=== PATIENT | male | born 1950 | race Caucasian/White ===

== ENCOUNTER 2019-01-18 10:32 | Inpatient (IN) | payer MEDICARE, SELFPAY ==
[2019-01-04 08:52] VITALS: BMI 40.8
[2019-01-17 07:54] VITALS: BMI 40.8
[2019-01-18] VITALS (18 sets, daily range): BP systolic 93–149; BP diastolic 46–88; PULSE 53–88; RESP 13–26; TEMP 35.6–36.6; O2SAT 89–100; BMI 40.6
--- NOTE | 2019-01-18 07:41 | DI.RAD.S_ITS ---
PROCEDURE: XR KNEE LT 1TO2V INDICATIONS: TKA TECHNIQUE: 2 view(s) of the knee acquired. COMPARISON: [facility], , KNEE 1-2 VIEWS RIGHT, 01/02/2015, 11:29. FINDINGS: Bones: Patient is status post knee joint arthroplasty. Hardware components are in expected positions. Visualized bony structures are intact. Soft tissues: Overlying postoperative changes are noted. IMPRESSION: Status post left total knee arthroplasty in normal postoperative alignment. No acute hardware complication. Dictated by: Siddhartha Bruce M.D. on 01/18/2019 at 18:00 Approved by: Siddhartha Bruce M.D. on 01/18/2019 at 18:01
[2019-01-18] MEDS: LACTATED RINGERS 1,000 ML 42 ML IV ×2 (11:33→15:25)
[2019-01-18] MEDS: CELECOXIB 200 MG CAPSULE PO (11:34)
[2019-01-18] MEDS: ACETAMINOPHEN 325 MG TABLET 975 MG PO ×3 (11:34→20:28)
[2019-01-18] MEDS: PREGABALIN 75 MG CAPSULE PO (11:34)
--- NOTE | 2019-01-18 12:09 | P.OP_ITS ---
Operative Date/Time/Diagnoses Date of procedure: 01/18/19 Time of procedure: 15:00 Pre-op diagnosis: Left knee osteoarthritis Post-op diagnosis: same Procedure & Clinicians Procedure: Left total knee arthroplasty Same procedure as scheduled: Yes Indications: The patient presents today for total knee arthroplasty after failure of conservative treatment. The nature of the procedure including the risks and benefits, alternatives, postoperative course and expected outcome were discussed and all questions answered. Consent was obtained. Operative site confirmed and marked. Surgeon: Dejan Estrada Refining Equipment Operator: Laz Herr Anesthesia Type: General and Spinal Operative Notes Findings: Severe osteoarthritis with varus alignment. Closure Type: primary Specimen(s): none sent Prosthetic devices, grafts, tissues, transplants, or devices: Srinivasan Persona TKA 8 CR femoral component, G stemmed tibial component, 10MC polyethylene tray and 35 mm all poly patella. Applied: implant(s) Estimated Blood Loss (mL): 15 Blood products transfused: none Tourniquet time (min): 69 Procedure in detail: The patient was taken to the operative suite and placed under general and spinal anesthesia. The patient was given prophylactic antibiotics prior to surgery. The patient was also given tranexamic acid, 1 g, just prior to surgery for postoperative hemostasis. The lateral knee was prepped and the joint injected with 20 mL of 1% Lidocaine with epinephrine. The knee was then prepped and draped in usual sterile fashion. The leg was exsanguinated with an Esmarch dressing and the tourniquet raised to 300 torr. A 15 cm anterior incision was made. Next a medial trivector arthrotomy was made. The extensor mechanism was marked to ensure accurate repair. Initial exposing dissection was carried out medially and laterally. The knee was then extended and the patellar thickness was measured and a cut made removing approximately 9 mm of bone. The patella was then sized and drilled. Some excess lateral bone was excised and the patellofemoral ligament released. The knee was then flexed and the intramedullary femoral guide dayo placed. The distal femoral cut was made in 5 ? of valgus at the + 0 position. The femoral size was measured and the appropriate cutting block was then placed and the anterior, posterior and chamfer cuts made. The intramedullary tibial alignment dayo was then placed. The guide was set to remove approximately 11 mm from the less affected lateral side which was about 2 mm through the medial side. The proximal tibial cut was then made with an oscillating saw. All meniscus and bony debris was then removed. Posterior femoral osteophytes removed with a curved osteotome. Flexion extension gaps were checked. No specific balancing was required other than routine exposure and removal of osteophytes. The soft tissues were then injected with a combination of 20 mL of half percent Marcaine with epinephrine and 20 mL of Exparel. The trial components were then placed. The knee went into full extension and flexion beyond 120?. There was good medial-lateral balance throughout motion. The knee was just slightly tighter in flexion than extension. Patellar tracking was excellent. The trial components were removed and the knee was cleansed with Pulsavac irrigation and dried. The final components were cemented with high viscosity vacuum mixed bone cement with antibiotics. The joint was filled with a dilute Betadine solution. The knee was held in extension and the patellar clamped until the cement was fully cured. The knee was then irrigated. The extensor mechanism was closed with 5 interrupted #1 Vicryl sutures and a running Quill suture at 90 degrees of flexion. The joint was then injected with a combination of 1 g of tranexamic acid and 20 mL of quarter percent Marcaine with epinephrine. The subcutaneous tissue was closed with 2 0 Vicryl. The skin was closed with sriram and surgical adhesive. An Aquacel dressing and Cristobal wrap were then applied. The patient tolerated the procedure well and was returned to recovery room in good condition. Complications: none Post-operative Condition: stable Disposition: PACU Plan for aftercare: [facility] protocol for total knee arthroplasty.
--- NOTE | 2019-01-18 12:09 | PM.PREOP ---
Pre-operative Note Interval Note History & Physical reviewed/Exam performed by Physician: Yes Changes to H&P: No
[2019-01-18] MEDS: CEFAZOLIN 2 GM/100 ML FROZ.PIGGY IV (13:25)
[2019-01-18] MEDS: LIDOCAINE 1% W/EPI 20 ML INJ (13:45)
--- NOTE | 2019-01-18 14:09 | SUR.OPER ---
Supine on padded OR bed. Pillow under head, arms secured on padded armboards <90 degree abduction. Safety belt across torso. Non-operative leg secured with tape over blanket over lower leg. Operative leg secured in DeMayo/Arian positioner. Foam padded brace at thigh of operative leg.
[2019-01-18] MEDS: BUPIVACAINE 0.25% W/ EPI (PF) 20 ML, TRANEXAMIC ACID 1,000 MG, SODIUM CHLORIDE 0.9% 10 ML INJ (14:18)
[2019-01-18] MEDS: BUPIVACAINE 0.25% W/ EPI (PF) 40 ML, BUPIVACAINE LIPOSOME 266 MG, SODIUM CHLORIDE 0.9% ... INJ (14:19)
[2019-01-18] MEDS: SODIUM CHLORIDE IRRIG SOLUTION 250 ML, POVIDONE-IODINE SPONGE STICKS 1 APPLIC IRR (14:20)
[2019-01-18] MEDS: LACTATED RINGERS 1,000 ML 125 ML IV (17:58)
--- NOTE | 2019-01-18 19:42 | PC.ADMIT ---
[facility] Admission Note: The patient,Rhett Rico,68 y/o, was given written information regarding hospital policies, unit procedures and contact persons. Patient's smoking status: Former smoker. Pt arrived from PACU at approx 1725. A/O. Drsg with gino drsg and radha wrap c/d/i. Denies pain. Reports mild tingling L. Foot. Reports baseline neuropathy. SCD's on. CPOX on, 4L NC upon arrival. Tritrated down to 3L NC sats 95%. Oriented to room and call system. Carb control diet ordered. Bed alarm on. Pt verbalized he will call for needs. Vital Signs - 8 hr 01/18/19 15:32 01/18/19 15:37 01/18/19 15:42 Temperature 97.9 F Pulse Rate 59 L 58 L 55 L Respiratory Rate 24 14 20 Blood Pressure 124/63 127/61 107/46 L Pulse Oximetry 96 98 98 01/18/19 15:45 01/18/19 15:47 01/18/19 15:52 Temperature Pulse Rate 57 L 55 L 59 L Respiratory Rate 17 24 26 H Blood Pressure 110/49 L 93/57 L Pulse Oximetry 95 97 01/18/19 16:00 01/18/19 16:08 01/18/19 16:29 Temperature 97.7 F 97.6 F Pulse Rate 56 L 56 L 53 L Respiratory Rate 19 13 22 Blood Pressure 142/64 H 128/68 129/75 Pulse Oximetry 100 95 96 01/18/19 17:27 01/18/19 17:40 01/18/19 18:10 Temperature 97 F L 97 F L Pulse Rate 53 L 53 L 55 L Respiratory Rate 20 18 Blood Pressure 139/77 127/63 Pulse Oximetry 96 94 95 01/18/19 18:40 01/18/19 18:53 Temperature 97 F L 96.6 F L Pulse Rate 56 L 88 Respiratory Rate 18 16 Blood Pressure 131/77 138/75 Pulse Oximetry 100 93
[2019-01-18] MEDS: ASPIRIN EC 81 MG TABLET PO (20:28)
[2019-01-18] MEDS: ZOLPIDEM 5 MG TABLET PO (20:29)
[2019-01-18] MEDS: OXYCODONE IR 10 MG TABLET PO (20:29)
[2019-01-18] MEDS: CEFAZOLIN VIAL 3 GM in SODIUM CHLORIDE 0.9% 100 ML 200 ML IV (20:34)
[2019-01-18] MEDS: HYDROMORPHONE 0.5 MG INJ IV ×2 (21:14→22:31)
--- NOTE | 2019-01-18 23:27 | PC.NURSE ---
Medicated per may for 01/05 pain. Pt states Oxycodone is not effective and he states he does not want it anymore. He states he has notified Dr. Estrada's office prior to surgery of his medication requests. He states I am angry that they ordered this medication when I told them it doesn't work. IV Dilaudid effective since administration. Presently sleeping with c-pap on 4L O2 bleed in.
[2019-01-19] VITALS (10 sets, daily range): BP systolic 126–140; BP diastolic 64–84; PULSE 73–82; RESP 16–20; TEMP 36.1–37; O2SAT 88–99
[2019-01-19] MEDS: LACTATED RINGERS 1,000 ML 125 ML IV (02:06)
[2019-01-19] MEDS: CEFAZOLIN VIAL 3 GM in SODIUM CHLORIDE 0.9% 100 ML 200 ML IV (05:31)
[2019-01-19] MEDS: HYDROMORPHONE 0.5 MG INJ IV ×3 (05:50→17:27)
--- NOTE | 2019-01-19 06:05 | PC.NURSE ---
Pt alert and oriented. Sleeping with CPAP and 4L O2 during the night, weaned off to 2L o2 NC in AM. O2 stats 93%. Will continue to wean O2 as tolerates. Pt had no complaints of pain during the night. Woke up around 5:30 reporting his pain a 10/10. Pt reports oxycodone and tylenol do not work for me, I need something else. Pain resolved with giving IV dilaudid. Left knee post op site picco dressing wrapped in radha clean dry and intact. Ice applied. Pedal pulses intact bilateral feet. Pt voiding without difficulty. No complaints. WCTM
[2019-01-19] MEDS: OXYCODONE IR 10 MG TABLET PO (06:17)
[2019-01-19 06:44] LABS: Hematocrit 42.3 % (41-53); Hemoglobin 14.1 g/dL (13.5-17.5)
--- NOTE | 2019-01-19 08:16 | PM.PNPO.1 ---
Subjective Subjective Date Patient Seen: 01/19/19 Time Patient Seen: 08:00 Interval history: Post op day 1, s/p total left knee arthroplasty with Dr. Estrada. Overnight patient had poorly controlled pain in L knee (oxy 10 and tylenol). Pain relief with IV dilaudid 0.5 mg. 02 88 on room air. Hx of sleep apnea and chronic short of breath. Patient is voiding without difficulty or assistance. Not ambulating. Patient has no complaints. He states he had numbness in the bottom of his feet and swelling in his left leg before surgery. Denies fever, chills, nausea, vomiting, chest pain, calf pain. Exam Vital Signs (past 8 hours): - 01/19/19 00:45 01/19/19 06:30 01/19/19 07:35 Temperature 96.9 F L 97.5 F L Pulse Rate 80 Respiratory Rate 17 Blood Pressure 140/84 Pulse Oximetry 94 92 95 01/19/19 07:40 01/19/19 07:42 01/19/19 08:00 Temperature 97.7 F Pulse Rate 82 Respiratory Rate 20 Blood Pressure 126/64 Pulse Oximetry 88 L 91 88 L Oxygen Delivery Method Room Air Oxygen Flow Rate 0 Narrative Exam Narrative: 68 year old male, is laying comfortably in bed, in no apparent distress. A&Ox3. JOSE M dressing is CDI. Pitting edema +1 in L LE. Patient able to actively dorsiflex/plantar flex. Sensory function grossly intact to light touch in LE, except plantar aspect of feet L>R. Dorsalis pedis 2+. Capillary refill <2seconds. Calves warm, soft, compressible, nttp. Objective Labs Result Diagrams: 01/19/19 06:16 Labs: Laboratory Results - last 24 hr 01/19/19 06:16 Hgb 14.1 Hct 42.3 Assessment & Plan Post-op Postoperative Procedures: Procedures Operation Date: 01/18/19 13:00 Actual Procedures Side Surgeon p Total Knee Arthroplasty Left Dejan Estrada MD Postoperative status: doing well and marginal pain control Postoperative plan narrative: Pain management - dilaudid 2mg PO for moderate pain, diluadid 4mg PO for severe pain, ibuprofen and tylenol Begin ambulating with physical therapy O2 - continue to monitor Discharge likely in 24 hours pending physical therapy, o2, and pain control. Will likely prescribe dilaudid 2mg for home. Time Spent With Patient Time with patient: less than 15 minutes Quality VTE Deep Vein Thrombosis/Pulmonary Embolism Present on Admission: No
[2019-01-19] MEDS: METFORMIN HCL 500 MG TABLET PO (08:53)
[2019-01-19] MEDS: ASPIRIN EC 81 MG TABLET PO ×2 (08:54→19:40)
[2019-01-19] MEDS: ATORVASTATIN 20 MG TABLET 40 MG PO (08:54)
[2019-01-19] MEDS: LOSARTAN 50 MG TABLET 100 MG PO (08:55)
[2019-01-19] MEDS: CHLORTHALIDONE 25 MG TABLET PO (08:55)
[2019-01-19] MEDS: HYDROMORPHONE 4 MG TABLET PO ×2 (08:56→12:21)
[2019-01-19] MEDS: METOPROLOL IR 25 MG TABLET PO (08:56)
[2019-01-19] MEDS: SODIUM CHLORIDE 0.9% FLUSH 10 ML IV ×2 (09:02→17:27)
[2019-01-19] MEDS: IBUPROFEN 400 MG TABLET PO (10:16)
--- NOTE | 2019-01-19 11:24 | PT.IIE ---
Current Diagnoses Unilateral primary osteoarthritis, left knee (01/18/19) Presence of right artificial knee joint (01/18/19) Surgery Performed Operation Date: 01/18/19 13:00 Actual Procedures p Total Knee Arthroplasty(Left) - Dejan Estrada MD Surgical History (Last Updated 01/04/19 @ 09:24 by Flavia Coreas RN) History of arthroplasty of right knee (Acute ~2017) Hx of tonsillectomy (Acute) Medical History (Last Updated 01/04/19 @ 09:25 by Flavia Coreas RN) Back pain (Acute) Chronic shortness of breath (Acute) Depression (Acute) Diabetes (Acute) Diabetic neuropathy (Acute) Diastolic dysfunction (Acute) Edema (Acute) HLD (hyperlipidemia) (Acute) HTN (hypertension) (Acute) Osteoarthritis (Acute) Pneumonia (Acute) Psoriasis (Acute) Sleep apnea (Acute) Physical Therapy Inpatient Evaluation/Re-Eval M1 PT/OT-IP Prior Functional Status Start: 01/19/19 08:36 Freq: NEEDED Status: Active Protocol: Document 01/19/19 10:50 AW (Rec: 01/19/19 11:24 AW [id number]) Medical Review Prior Functional Status Medical History Reviewed Yes Diet/Fluid Consistency Regular Communication Able to make needs known. No known deficits Mobility and Gait Pt was modified independent with mobility using a SPC at all times. For bed mobility, he has a trapeze he installed himself which he uses to pull up from supine. He could manage stairs but required extra time. He does report one fall within the past year. He says he slid out of bed onto the floor and damaged a toenail. He denies any other injuries. Activities of Daily Living and IADL's Independent with the exception of requiring help to don shoes and socks. Social History Household Members significant other Living Arrangements House Number of Floors (Floors) Two Floors Number of Stairs To Enter/Railing? 0 JOHNATHON. ~30 stairs to basement, but pt does not need to access the basement. Home Environment Standard Height Toilet,Walk in Shower Home Equipment Front Wheel Walker,Straight Cane,Raised Toilet Seat w/ Armrests,Shower Seat without Backrest,Grab Bars In Shower Employment Status Retired Additional Social History Comment Pt lives with his girlfriend who is retired. She is available and able to assist as needed. M2 PT-IP Current Condition Start: 01/19/19 08:36 Freq: NEEDED Status: Active Protocol: Document 01/19/19 10:50 AW (Rec: 01/19/19 11:24 AW [id number]) Physical Therapy Current Condition Current Condition Evaluation Date 01/19/19 Treatment Diagnosis s/p L TKA, impaired mobility Weight Bearing Status Weight Bearing Status Weight Bear as Tolerated M3 PT-IP Subjective Start: 01/19/19 08:36 Freq: NEEDED Status: Active Protocol: Document 01/19/19 10:50 AW (Rec: 01/19/19 11:24 AW [id number]) Subjective Physical Therapy Visit Type Type Initial Evaluation Visit Start Time 09:00 Visit Stop Time 10:00 Total Visit Minutes 60 Number of COMMERCIAL SINGER Visits 0 Physical Therapy Visit Comments Patient Comments Pt is in a lot of pain but willing to work with therapy Patient Goals Pt hopes to discharge to home with the assistance of his girlfriend. Therapy Pain Assessment Pain When Pain Assessed During Mobility Pain Present Pain Present Pain Reported Location Knee Intensity 10 Scale Used 5/10 at rest; 10/10 with mobility Pain Management Techniques Apply Cold,Elevation,Re- positioning,Timing of Activity with Medications M4 PT-IP Mobility and Gait Start: 01/19/19 08:36 Freq: NEEDED Status: Active Protocol: Document 01/19/19 10:50 AW (Rec: 01/19/19 11:24 AW [id number]) PT-Bed Mobility Assessment Supine to Sit Supine to Sit Minimal Assistance,Moderate Assistance,1 Person Assistance ,Head of Bed Elevated,Bedrails Sit to Supine Sit to Supine Minimal Assistance,1 Person Assistance Scooting Scooting to Edge of Bed Contact Guard Assistance Scooting Up and Down in Bed Standby Assistance PT-Transfer Assessment Sit to and From Stand Sit to and from Stand Minimal Assistance,Moderate Assistance,1 Person Assistance ,Use of Upper Extremities Equipment Transfer Assistive Device Bed Rail,Gait Belt,Front Wheeled Walker Transfers Transfer Destination Bed,Bedside Commode Transfer Technique pt ambulated using FWW to bed; stand step pivot to BSC Transfer Ability Level of Assist Minimal Assistance Comments Mobility Comments Pt normally uses a trapeze for bed mobility at home. In this setting, he required heavy use of bed rails with HOB elevated 75 degrees and min to mod assist to complete supine to sit. He was able to scoot toward EOB with CGA. Sit <> stand required max cues for hand placement and mod assist to achieve standing position. Subsequent attempts required min assist. Transfer to [facility] required frequent cues for sequencing and proper use of UE's. Gait Assessment Gait Gait Assistance Required: Minimum Assistance Distance (Feet) 12 Able to Maintain Weight Bearing Status Yes During Gait Assistive Devices Assistive Device Gait Belt,Front Wheeled Walker Orthotic/Prosthetic Devices or Brace: No Gait Deviations General Gait Pattern Antalgic,Decreased Stride Length,Decreased Feet Clearance,Flexed Trunk,Step-to Gait Factors Limiting Gait Function Factors Limiting Gait Function Decreased Activity Tolerance, Decreased Sensation,Decreased Strength,Pain,Poor Balance, Poor Safety Awareness Comments Gait Comments Pt ambulated ~12 feet in room using FWW min A. He required increased time due to reports of increaesed pain. Steps were severely shortened. Pt required rest break after 12 feet. Stair Climbing Assessment Comments Stair Climbing Comments Did not assess. PT-Balance Assessment Sitting Balance and Reactions Static Sitting Balance Ability Good Dynamic Sitting Balance Ability Good Standing Balance and Reactions Static Standing Balance Ability Good Dynamic Standing Balance Ability Fair Device Used FWW M5 PT-IP Objective Assessments Start: 01/19/19 08:36 Freq: NEEDED Status: Active Protocol: Document 01/19/19 10:50 AW (Rec: 01/19/19 11:24 AW [id number]) Orientation Orientation/Cognition Level of Alertness Alert Orientation Name,Date,Place,Situation Language Function Ability No Deficits Noted Safety Awareness Decreased Safety Awareness Memory Description No Deficits Noted Comments Pt was impulsive with transfers, requiring frequent cues for safe use of FWW, safe use of UE's for support. Gross Range of Motion Upper Extremity ROM Assessment Within Functional Limits Lower Extremity ROM Assessment Left Impaired Strength Upper Extremity Strength Assessment Within Functional Limits Lower Extremity Strength Assessment Left Impaired Comments Strength Comments RLE grossly 4+/5 Sensation Assessment Sensation Gross Sensation Right LE Impaired,Left LE Impaired Light Touch Impaired Sensation Description Numbness Comments Sensation Comments Pt has history of diabetic neuropathy affecting light touch sensation of bilateral plantar feet (left more affected than right) M6 PT-IP Treatment Start: 01/19/19 08:36 Freq: NEEDED Status: Active Protocol: Document 01/19/19 10:50 AW (Rec: 01/19/19 11:24 AW [id number]) Physical Therapy Treatment Exercises Exercises Ankle Pumps,Heel Slides Education Education Provided Precautions,Weight Bearing Status,Post-Op Packet,Safety Other Treatments Other Treatment Performed Educated pt on PT plan of care , limited post-op exercises, weightbearing status, and safe use of FWW. M7 PT-IP Assessment and Plan Start: 01/19/19 08:36 Freq: NEEDED Status: Active Protocol: Document 01/19/19 10:50 AW (Rec: 01/19/19 11:24 AW [id number]) PT Summary Assessment and Plan Potential Rehabilitation Potential Good Status of Condition at Evaluation Evolving Summary Impairments Pain,Strength,Balance, Sensation,Bed Mobility, Transfers,Gait,Activity Tolerance Assessment Summary Pt is a 68 yo man with history of R TKA (2014) and diabetic neuropathy who was seen for PT evaluation on POD1 following L TKA. PLOF: Pt was modified indpendent for mobility with use of SPC at all times. He also used a trapeze for bed mobility. With the exception of requiring assist to don shoes and socks, he was independent with ADL's. CLOF: Pt required min to mod assist for all mobility. Ambulation of 12 feet with FWW required min assist and a rest break due to poor activity tolerance and pain. Regarding discharge planning, pt reports he stayed in hospital 3-4 days following his R TKA in 2014 followed by home health. In the context of this patient's level of debility compared with prior function, he may require SNF rehab before safe discharge to home. PT recommendation is for SNF rehab vs home with home health . Will continue to assess. Goals Bed Mobility Goal Standby Assistance Transfer Goal Standby Assistance Gait Goal Standby Assistance Gait Distance 100 Days to Meet Goals 10 Frequency of Treatment Frequency Of Treatment Twice a Day Treatment Plan Physical Therapy Treatment Plan Bed Mobility Training,Transfer Training,Gait Training, Therapeutic Exercise,Balance Retraining,Post Op Education, Discharge Planning,Hot or Cold Pack,Neuromuscular Re-ed, Coordination Retraining,Manual Therapy Other Recommendations and Next Treatment bed mobility, transfers, Focus progress ambulation Recommendations To Nursing Amount of Assist Needed 1 Person Assist,2 Person Assist Discharge Recommendations PT Discharge Recommendations Home with Assistance,Home Health,SNF Rehab Other Discharge Recommendations SNF rehab vs home with
[2019-01-19] MEDS: DOCUSATE 100 MG CAPSULE PO ×2 (12:22→19:40)
[2019-01-19] MEDS: POLYETHYLENE GLYCOL 3350 17 GM POWD.PACK PO (12:22)
--- NOTE | 2019-01-19 14:38 | CM.IDA ---
Initial DCP Assessment Note: Pt is a 68 yo male, resident of [facility]. Pt POD#1 from left knee surgery w/Dr Estrada. PCP: Pablo Baxter Payer: Medicare/[employer]ARP. PT Giselle recommending SNF vs Home w/ HH based on pt's session with her this morning. Met w/pt, explained role. He explained that when he had his right knee done he stayed for 4 nights and Medicare didn't pay for that entire time, he is adamant that he can not stay that long. Pt is planning on going home w/spouse and family to assist. He explains that he woke up this morning in excruciating pain and feels this set him back a bit. Discussed SNF ? Pt states he will not need SNF upon DC. Pt appreciative of the visit. P: DC likely home, op PT vs home health via pov and family to assist, per pt's plan PATRICIA Brown Discharge Planning/Care Management CM Discharge Assessment Start: 01/19/19 11:12 Freq: Status: Active Protocol: Document 01/19/19 11:13 PRINCESS (Rec: 01/19/19 11:17 PRINCESS [id number]) Discharge Planning Assessment Assigned [employer] Producer PATRICIA Membreno DPOA/Assigned Designee Name Ira (S.O.) Bhumika (daughter ) Contact Information [phone] or [phone] Advance Directives? Yes History Provided By Medical Record Prior Living Arrangements House Household Members significant other Type of transporation used prior to Drives own vehicle admit Independent with ADL's Yes Is patient alert and oriented? Yes Patient/Family Preference OP PT Therapy Barriers to Discharge No Discharge Plan Home Transportation Arrangement Family Referrals Initiated None needed Additional Comment Pending PT today/tomorrow Review Status In Process
--- NOTE | 2019-01-19 14:48 | PC.NURSE ---
Addendum entered by Michaela Maxwell R.N. 01/19/19 16:17: Called and left message with REBECCA Sousa at 1451 regarding pain issues. evening RN aware. Earlier this morning during shift change, pt had pain issues to left knee, states having a deep aching and sharp pain with movement, pain 6-8/10 rest and 11/10 movement. Left knee JOSE M dressing CDI, radha wrap CDI. CMS+, pt states has chronic edema L>R. Left foot and ankle and lower leg edema is 2+ pitting, PPP and previously marked. Pt felt that his pain had not been managed since post surgery and was questioning receiving po pills after surgery and not IV medication for pain management. Post op Pain management discussed. States Oxycodone not effective and had little relief with IV Dilaudid PRN . REBECCA Sousa present on unit and this job specification writer spoke with PA around 0752 re pain control issue. New orders rec'd. Pt updated and plan to stagger PRN po Dilaudid and PRN po Ibuprofen and have available IV Dilaudid for BTP. Dilaudid 4mg po given at 0900 and 1220 with little relief. Ibuprofen given at 1015. Pt stated Tylenol does not work for him therefore refused scheduled dose. Day shift RN Coordinator aware of pt's pain issues and complaint of not being managed. This afternoon, pt's pain level 6-8/10 on rest, remains deep aching and 8-12/10 with movement or working with PT. Again pain plan discussed and explaining different medications work for different people, timing, environment, situation, prescribing physician. Many factors involved. Pt stated he wanted me to check the medicines he had been receiving through his IV for contamination. Stating that the IV medication given earlier had not been what was prescribed and switched with water. This conversation was also reported by the PT to this job specification writer. Evening RN aware and JOHN Elenagas station manager aware. Original Note: Day Shift- at 1434, pt refused prn Ibuprofen and IV Dilaudid at this time.
[2019-01-19] MEDS: hydrOXYzine pamoate 25 MG CAPSULE 50 MG PO ×2 (16:21→22:19)
[2019-01-19] MEDS: TRAMADOL 50 MG TABLET PO ×2 (16:21→22:18)
--- NOTE | 2019-01-19 17:30 | PT.IPTN ---
Current Diagnoses Unilateral primary osteoarthritis, left knee (01/18/19) Presence of right artificial knee joint (01/18/19) Surgery Performed Operation Date: 01/18/19 13:00 Actual Procedures p Total Knee Arthroplasty(Left) - Dejan Estrada MD Physical Therapy Treatment Note M2 PT-IP Current Condition Start: 01/19/19 08:36 Freq: NEEDED Status: Active Protocol: Document 01/19/19 10:50 AW (Rec: 01/19/19 11:24 AW [id number]) Physical Therapy Current Condition Current Condition Evaluation Date 01/19/19 Treatment Diagnosis s/p L TKA, impaired mobility Weight Bearing Status Weight Bearing Status Weight Bear as Tolerated M3 PT-IP Subjective Start: 01/19/19 08:36 Freq: NEEDED Status: Active Protocol: Document 01/19/19 17:17 AW (Rec: 01/19/19 17:30 AW [email or web address]) Subjective Physical Therapy Visit Type Type Treatment Note Visit Start Time 17:00 Visit Stop Time 17:15 Total Visit Minutes 15 Number of INSTALLMENT DEALER Visits 0 Physical Therapy Visit Comments Patient Comments Pt has been in bed since morning but is amenable to the idea of getting up to a chair for dinner. Therapy Pain Assessment Pain When Pain Assessed At Rest Pain Present Pain Present Pain Reported Location Knee Intensity 5 Scale Used Numeric (1 - 10) Pain Management Techniques Apply Cold,Elevation,Re- positioning,Timing of Activity with Medications M4 PT-IP Mobility and Gait Start: 01/19/19 08:36 Freq: NEEDED Status: Active Protocol: Document 01/19/19 17:17 AW (Rec: 01/19/19 17:30 AW [id number]) PT-Bed Mobility Assessment Supine to Sit Supine to Sit Minimal Assistance,1 Person Assistance,Head of Bed Elevated,Bedrails Scooting Scooting to Edge of Bed Contact Guard Assistance PT-Transfer Assessment Sit to and From Stand Sit to and from Stand Moderate Assistance,1 Person Assistance,Use of Upper Extremities Equipment Transfer Assistive Device Bed Rail,Gait Belt,Front Wheeled Walker Transfers Transfer Destination Chair Transfer Technique pt walked with FWW Transfer Ability Level of Assist Minimal Assistance Comments Mobility Comments Pt transferred from bed with HOB elevated and heavy reliance on bed rails and min A to manage the operative leg. He required max cues for use of UE's to complete bed mobility. Sit to stand was completed with FWW mod A from elevated bed. Bed was raised to simulate his bed at home. Transfer to chair was accomplished with fewer sequencing cues, but pt demonstrated poor eccentric control Gait Assessment Gait Gait Assistance Required: Contact Guard Assist Distance (Feet) 25 Able to Maintain Weight Bearing Status Yes During Gait Assistive Devices Assistive Device Gait Belt,Front Wheeled Walker Orthotic/Prosthetic Devices or Brace: No Gait Deviations General Gait Pattern Antalgic,Decreased Stride Length,Decreased Feet Clearance,Flexed Trunk,Step-to Gait Factors Limiting Gait Function Factors Limiting Gait Function Decreased Activity Tolerance, Decreased Sensation,Decreased Strength,Pain,Poor Balance, Poor Safety Awareness Comments Gait Comments Pt progressed gait distance using FWW CGA. Step length notably increased since morning session, but pt continued wtih step-to pattern . M5 PT-IP Objective Assessments Start: 01/19/19 08:36 Freq: NEEDED Status: Active Protocol: Document 01/19/19 10:50 AW (Rec: 01/19/19 11:24 AW [id number]) Orientation Orientation/Cognition Level of Alertness Alert Orientation Name,Date,Place,Situation Language Function Ability No Deficits Noted Safety Awareness Decreased Safety Awareness Memory Description No Deficits Noted Comments Pt was impulsive with transfers, requiring frequent cues for safe use of FWW, safe use of UE's for support. Gross Range of Motion Upper Extremity ROM Assessment Within Functional Limits Lower Extremity ROM Assessment Left Impaired Strength Upper Extremity Strength Assessment Within Functional Limits Lower Extremity Strength Assessment Left Impaired Comments Strength Comments RLE grossly 4+/5 Sensation Assessment Sensation Gross Sensation Right LE Impaired,Left LE Impaired Light Touch Impaired Sensation Description Numbness Comments Sensation Comments Pt has history of diabetic neuropathy affecting light touch sensation of bilateral plantar feet (left more affected than right) M6 PT-IP Treatment Start: 01/19/19 08:36 Freq: NEEDED Status: Active Protocol: Document 01/19/19 17:17 AW (Rec: 01/19/19 17:30 AW [email or web address]) Physical Therapy Treatment Exercises Exercises Ankle Pumps,Quad Sets,Heel Slides,Passive Knee Extension Hang M7 PT-IP Assessment and Plan Start: 01/19/19 08:36 Freq: NEEDED Status: Active Protocol: Document 01/19/19 17:17 AW (Rec: 01/19/19 17:30 AW [email or web address]) PT Summary Assessment and Plan Summary Impairments Pain,Strength,Balance, Sensation,Bed Mobility, Transfers,Gait,Activity Tolerance Progress Towards Goals Slow Progress due to Pain Assessment Summary Pt progressed gait distance with pain better managed this afternoon. He continues to require mod assist for sit to stand from elevated bed and his activity tolerance is still greatly impaired. If pain is better managed, he is anticipated to improve his mobility and be able to safely discharge home. If he can not increase his independence, he may require SNF rehab. Will continue to assess Goals Bed Mobility Goal Standby Assistance Transfer Goal Standby Assistance Gait Goal Standby Assistance Gait Distance 100 Days to Meet Goals 10 Frequency of Treatment Frequency Of Treatment Twice a Day Treatment Plan Physical Therapy Treatment Plan Bed Mobility Training,Transfer Training,Gait Training, Therapeutic Exercise,Balance Retraining,Post Op Education, Discharge Planning,Hot or Cold Pack,Neuromuscular Re-ed, Coordination Retraining,Manual Therapy Other Recommendations and Next Treatment bed mobility, transfers, Focus progress ambulation Recommendations To Nursing Amount of Assist Needed Independent Discharge Recommendations PT Discharge Recommendations Home with Assistance,Home Health,SNF Rehab Other Discharge Recommendations SNF rehab vs home with HH
[2019-01-19] MEDS: ZOLPIDEM 5 MG TABLET PO (19:39)
[2019-01-20] VITALS (8 sets, daily range): BP systolic 106–146; BP diastolic 51–67; PULSE 67–97; RESP 18–22; TEMP 35.7–36.9; O2SAT 87–94
[2019-01-20] MEDS: TRAMADOL 50 MG TABLET PO ×4 (03:46→20:39)
[2019-01-20] MEDS: hydrOXYzine pamoate 25 MG CAPSULE 50 MG PO ×3 (03:47→15:52)
--- NOTE | 2019-01-20 05:06 | PC.NURSE ---
Pain well managed with vistaril and tramodol. Patient able to rest in between cares, using the urinal independently at the bedside.
[2019-01-20] MEDS: ASPIRIN EC 81 MG TABLET PO ×2 (09:19→20:39)
[2019-01-20] MEDS: METFORMIN HCL 500 MG TABLET PO ×2 (09:19→15:51)
[2019-01-20] MEDS: ATORVASTATIN 20 MG TABLET 40 MG PO (09:19)
[2019-01-20] MEDS: LOSARTAN 50 MG TABLET 100 MG PO (09:20)
[2019-01-20] MEDS: CHLORTHALIDONE 25 MG TABLET PO (09:20)
[2019-01-20] MEDS: METOPROLOL IR 25 MG TABLET PO (09:20)
[2019-01-20] MEDS: DOCUSATE 100 MG CAPSULE PO (09:21)
[2019-01-20] MEDS: POLYETHYLENE GLYCOL 3350 17 GM POWD.PACK PO (09:45)
[2019-01-20] MEDS: IBUPROFEN 400 MG TABLET PO ×2 (09:45→13:35)
[2019-01-20] MEDS: ACETAMINOPHEN 325 MG TABLET 975 MG PO ×3 (09:45→20:39)
--- NOTE | 2019-01-20 09:45 | PM.PNPO.1 ---
Subjective Subjective Date Patient Seen: 01/20/19 Time Patient Seen: 09:45 Interval history: Patient is POD#2 s/p right TKA with Dr. Estrada. He continued to have poor pain control yesterday despite trial of oxycodone, dilaudid, and ibuprofen. Is currently taking Tramadol and Vistaril which is controlling his pain while at rest but continues to have severe pain with ambulation. Voiding appropriately with bedside urinal. Denies chest pain, chronic shortness of breath uses CPAP no changes. Exam Vital Signs (past 8 hours): - 01/20/19 02:57 01/20/19 05:15 Temperature 98.5 F Pulse Rate 76 Respiratory Rate 19 Blood Pressure 106/51 L Pulse Oximetry 94 93 Oxygen Delivery Method Nasal Cannula Oxygen Flow Rate 0 Narrative Exam Narrative: 68 year old male resting in chair. Alert and oriented in no acute distress. Cristobal wrap in place. Underlying JOSE M is on and functioning, CDI with small pinprick shadow drainage at middle of dressing. Patient able to flex/extend the ankle. Moderate extremity edema that is equal bilaterally without pitting. Palpable pedal pulse. Calves soft, compressible. Objective Labs Result Diagrams: 01/19/19 06:16 Assessment & Plan Post-op Postoperative Procedures: Procedures Operation Date: 01/18/19 13:00 Actual Procedures Side Surgeon p Total Knee Arthroplasty Left Dejan Estrada MD Patient has some relief with Tramadol/Vistaril combination but continues to have poor mobility due to pain control. Stressed to him the importance of multimodal pain control and that he should stop refusing scheduled Tylenol and Ibuprofen. Continue to mobilize with PT. Possible discharge to home tomorrow if improved pain control and mobility, otherwise may need to consider SNF. Quality VTE Deep Vein Thrombosis/Pulmonary Embolism Present on Admission: No
--- NOTE | 2019-01-20 10:20 | PT.IPTN ---
Current Diagnoses Unilateral primary osteoarthritis, left knee (01/18/19) Presence of right artificial knee joint (01/18/19) Surgery Performed Operation Date: 01/18/19 13:00 Actual Procedures p Total Knee Arthroplasty(Left) - Dejan Estrada MD Physical Therapy Treatment Note M2 PT-IP Current Condition Start: 01/19/19 08:36 Freq: NEEDED Status: Active Protocol: Document 01/19/19 10:50 AW (Rec: 01/19/19 11:24 AW [id number]) Physical Therapy Current Condition Current Condition Evaluation Date 01/19/19 Treatment Diagnosis s/p L TKA, impaired mobility Weight Bearing Status Weight Bearing Status Weight Bear as Tolerated M3 PT-IP Subjective Start: 01/19/19 08:36 Freq: NEEDED Status: Active Protocol: Document 01/20/19 10:20 SP (Rec: 01/20/19 10:53 SP [id number]) Subjective Physical Therapy Visit Type Type Treatment Note Visit Start Time 09:50 Visit Stop Time 10:20 Total Visit Minutes 30 Number of KNURLING MACHINE TENDER Visits 1 Physical Therapy Visit Comments Patient Comments Pt up in chair when arrived, stated willing to work with PT , recently received his pain meds and still 8/10, L knee stiff. Patient Goals Want to get up and move around . Therapy Pain Assessment Pain When Pain Assessed At Rest Pain Present Pain Present Pain Reported Location Knee Intensity 8 Scale Used Numeric (1 - 10) Pain Management Techniques Apply Cold,Elevation,Re- positioning,Timing of Activity with Medications M4 PT-IP Mobility and Gait Start: 01/19/19 08:36 Freq: NEEDED Status: Active Protocol: Document 01/20/19 10:20 SP (Rec: 01/20/19 10:53 SP [id number]) PT-Bed Mobility Assessment Sit to Supine Sit to Supine Minimal Assistance,1 Person Assistance,Bedrails Scooting Scooting to Edge of Bed Contact Guard Assistance PT-Transfer Assessment Sit to and From Stand Sit to and from Stand Moderate Assistance,1 Person Assistance,Use of Upper Extremities Equipment Transfer Assistive Device Bed Rail,Gait Belt,Front Wheeled Walker Transfers Transfer Destination Bed,Chair Transfer Technique Pt walked with fWW Transfer Ability Level of Assist Contact Guard Assistance,Use of Upper Extremities Comments Mobility Comments Pt required Mod A x1 with FWW to complete sit to stand from chair, cued and provided min cues for hip hinge trunk forward transition to stand, LLE positioned out in front and cued BUE hand placement transition chair to FWW. CGA for pivoting with noted heavy BUE WB on FWW and heavy RLE foot repositioning initially. Gait Assessment Gait Gait Assistance Required: Contact Guard Assist Distance (Feet) 30 Able to Maintain Weight Bearing Status Yes During Gait Assistive Devices Assistive Device Gait Belt,Front Wheeled Walker Orthotic/Prosthetic Devices or Brace: No Gait Deviations General Gait Pattern Antalgic,Decreased Stride Length,Decreased Feet Clearance,Flexed Trunk,Step-to Gait Factors Limiting Gait Function Factors Limiting Gait Function Decreased Activity Tolerance, Decreased Sensation,Decreased Strength,Pain,Poor Balance, Poor Safety Awareness Comments Gait Comments Pt progressed in gait distance in room using FWW CGA. Step length notably decreased today , heavy RLE foot scoot forward with forward movement improved as distance progressed. Encouraged as tolerated step length to progress normal gait, continued step to gait. PT-Balance Assessment Sitting Balance and Reactions Static Sitting Balance Ability Good Dynamic Sitting Balance Ability Good Standing Balance and Reactions Static Standing Balance Ability Good Dynamic Standing Balance Ability Fair Device Used FWW M5 PT-IP Objective Assessments Start: 01/19/19 08:36 Freq: NEEDED Status: Active Protocol: Document 01/19/19 10:50 AW (Rec: 01/19/19 11:24 AW [id number]) Orientation Orientation/Cognition Level of Alertness Alert Orientation Name,Date,Place,Situation Language Function Ability No Deficits Noted Safety Awareness Decreased Safety Awareness Memory Description No Deficits Noted Comments Pt was impulsive with transfers, requiring frequent cues for safe use of FWW, safe use of UE's for support. Gross Range of Motion Upper Extremity ROM Assessment Within Functional Limits Lower Extremity ROM Assessment Left Impaired Strength Upper Extremity Strength Assessment Within Functional Limits Lower Extremity Strength Assessment Left Impaired Comments Strength Comments RLE grossly 4+/5 Sensation Assessment Sensation Gross Sensation Right LE Impaired,Left LE Impaired Light Touch Impaired Sensation Description Numbness Comments Sensation Comments Pt has history of diabetic neuropathy affecting light touch sensation of bilateral plantar feet (left more affected than right) M6 PT-IP Treatment Start: 01/19/19 08:36 Freq: NEEDED Status: Active Protocol: Document 01/20/19 10:20 SP (Rec: 01/20/19 10:53 SP [id number]) Physical Therapy Treatment Exercises Exercises Ankle Pumps,Heel Slides Other Treatments Other Treatment Performed Educate pt on PT, perform LE exercises: ankle pumps, heel slides, quad sets as tolerated to improve ROM and decreased stiffness reported within pain tolerance. M7 PT-IP Assessment and Plan Start: 01/19/19 08:36 Freq: NEEDED Status: Active Protocol: Document 01/20/19 10:20 SP (Rec: 01/20/19 10:53 SP [id number]) PT Summary Assessment and Plan Potential Rehabilitation Potential Good Status of Condition at Evaluation Evolving Summary Impairments Pain,Strength,Balance, Sensation,Bed Mobility, Transfers,Gait,Activity Tolerance Progress Towards Goals Slow Progress due to Pain Assessment Summary Pt progressed gait distance with pain decreased to 5 /10 end of tx and provided CP for assist pain control. He continues to require mod assist for sit to stand from elevated bed and side chair and his activity tolerance is still greatly impaired. If pain is better managed, he is anticipated to improve his mobility and be able to safely discharge home. If he can not increase his independence, he may require SNF rehab. Will continue to assess. Pt was in bed with cold pack when left, call light at side. Goals Bed Mobility Goal Standby Assistance Transfer Goal Standby Assistance Gait Goal Standby Assistance Gait Distance 100 Days to Meet Goals 10 Frequency of Treatment Frequency Of Treatment Twice a Day Treatment Plan Physical Therapy Treatment Plan Bed Mobility Training,Transfer Training,Gait Training, Therapeutic Exercise,Balance Retraining,Post Op Education, Discharge Planning,Hot or Cold Pack,Neuromuscular Re-ed, Coordination Retraining,Manual Therapy Other Recommendations and Next Treatment bed mobility, transfers, Focus progress ambulation Recommendations To Nursing Amount of Assist Needed Independent Discharge Recommendations PT Discharge Recommendations Home with Assistance,Home Health,SNF Rehab Other Discharge Recommendations SNF rehab vs home with HH
--- NOTE | 2019-01-20 12:41 | PC.NURSE ---
Day SHift- Pt A&OX4, sitting up in chair in corner of room close to window seat, call light taped to bedside table just within reach of pt. Left knee JOSE M dressing intact with scant old bloody drainage shadowing to distal end of dressing, radha wrap in place. CMS+, chronic numbness to Bilateral feet, nothing new post op. PPP, previous marked. Pt able to lift LLE off pillow but not against resistance. Pt states he had sleep last night, pain better controlled. 3/10 resting in recliner chair and 10/10 with movement. Per REBECCA Elias, pt agreeable for prn Ibuprofen, Vistaril, Tramadol and scheduled Tylenol as pain management plan for today.
[2019-01-20] MEDS: SODIUM CHLORIDE 0.9% FLUSH 10 ML IV ×2 (13:36→20:56)
--- NOTE | 2019-01-20 15:21 | PT.IPTN ---
Current Diagnoses Unilateral primary osteoarthritis, left knee (01/18/19) Presence of right artificial knee joint (01/18/19) Surgery Performed Operation Date: 01/18/19 13:00 Actual Procedures p Total Knee Arthroplasty(Left) - Dejan Estrada MD Physical Therapy Treatment Note M2 PT-IP Current Condition Start: 01/19/19 08:36 Freq: NEEDED Status: Active Protocol: Document 01/19/19 10:50 AW (Rec: 01/19/19 11:24 AW [id number]) Physical Therapy Current Condition Current Condition Evaluation Date 01/19/19 Treatment Diagnosis s/p L TKA, impaired mobility Weight Bearing Status Weight Bearing Status Weight Bear as Tolerated M3 PT-IP Subjective Start: 01/19/19 08:36 Freq: NEEDED Status: Active Protocol: Document 01/20/19 15:15 GGD (Rec: 01/20/19 15:21 GGD [id number]) Subjective Physical Therapy Visit Type Type Treatment Note Visit Start Time 14:50 Visit Stop Time 15:13 Total Visit Minutes 23 Number of LINE COOK Visits 2 Physical Therapy Visit Comments Patient Comments Pt states he would like to go to the chair. Therapy Pain Assessment Pain When Pain Assessed At Rest Pain Present Pain Present Pain Reported Location Knee Intensity 6 Scale Used Numeric (1 - 10) M4 PT-IP Mobility and Gait Start: 01/19/19 08:36 Freq: NEEDED Status: Active Protocol: Document 01/20/19 15:15 GGD (Rec: 01/20/19 15:21 GGD [id number]) PT-Transfer Assessment Sit to and From Stand Sit to and from Stand Contact Guard Assistance,1 Person Assistance,Use of Upper Extremities Equipment Transfer Assistive Device Gait Belt,Front Wheeled Walker Transfers Transfer Destination Chair Transfer Ability Level of Assist Contact Guard Assistance,Use of Upper Extremities Gait Assessment Gait Gait Assistance Required: Contact Guard Assist Distance (Feet) 40 Able to Maintain Weight Bearing Status Yes During Gait Assistive Devices Assistive Device Gait Belt,Front Wheeled Walker Orthotic/Prosthetic Devices or Brace: No Gait Deviations General Gait Pattern Antalgic,Decreased Stride Length,Decreased Feet Clearance,Flexed Trunk,Step-to Gait Factors Limiting Gait Function Factors Limiting Gait Function Decreased Activity Tolerance, Decreased Sensation,Decreased Strength,Pain,Poor Balance, Poor Safety Awareness M5 PT-IP Objective Assessments Start: 01/19/19 08:36 Freq: NEEDED Status: Active Protocol: Document 01/19/19 10:50 AW (Rec: 01/19/19 11:24 AW [id number]) Orientation Orientation/Cognition Level of Alertness Alert Orientation Name,Date,Place,Situation Language Function Ability No Deficits Noted Safety Awareness Decreased Safety Awareness Memory Description No Deficits Noted Comments Pt was impulsive with transfers, requiring frequent cues for safe use of FWW, safe use of UE's for support. Gross Range of Motion Upper Extremity ROM Assessment Within Functional Limits Lower Extremity ROM Assessment Left Impaired Strength Upper Extremity Strength Assessment Within Functional Limits Lower Extremity Strength Assessment Left Impaired Comments Strength Comments RLE grossly 4+/5 Sensation Assessment Sensation Gross Sensation Right LE Impaired,Left LE Impaired Light Touch Impaired Sensation Description Numbness Comments Sensation Comments Pt has history of diabetic neuropathy affecting light touch sensation of bilateral plantar feet (left more affected than right) M6 PT-IP Treatment Start: 01/19/19 08:36 Freq: NEEDED Status: Active Protocol: Document 01/20/19 15:15 GGD (Rec: 01/20/19 15:21 GGD [id number]) Physical Therapy Treatment Exercises Exercises Ankle Pumps,Quad Sets,Short Arc Quads,Seated Knee Flexion/ Extension M7 PT-IP Assessment and Plan Start: 01/19/19 08:36 Freq: NEEDED Status: Active Protocol: Document 01/20/19 15:15 GGD (Rec: 01/20/19 15:21 GGD [id number]) PT Summary Assessment and Plan Summary Assessment Summary Pt improved with sit stand. He was able to progress gait with step to gait pattern with heavy use of UE. Frequency of Treatment Frequency Of Treatment Twice a Day Treatment Plan Physical Therapy Treatment Plan Bed Mobility Training,Transfer Training,Gait Training, Therapeutic Exercise,Balance Retraining,Post Op Education, Discharge Planning,Hot or Cold Pack,Neuromuscular Re-ed, Coordination Retraining,Manual Therapy Recommendations To Nursing Amount of Assist Needed 1 Person Assist Discharge Recommendations PT Discharge Recommendations Home with Assistance,Home Health,SNF Rehab Other Discharge Recommendations SNF rehab vs home with HH
[2019-01-20] MEDS: ZOLPIDEM 5 MG TABLET PO (20:39)
[2019-01-21 00:35] VITALS: BP 111/61; PULSE 63; RESP 18; TEMP 36.2; O2SAT 93
[2019-01-21 05:08] VITALS: BP 132/61; PULSE 72; RESP 20; TEMP 36.3; O2SAT 93
[2019-01-21 08:00] VITALS: BP 116/58; PULSE 75; RESP 20; TEMP 36.6; O2SAT 90
[2019-01-21] MEDS: ASPIRIN EC 81 MG TABLET PO (08:27)
[2019-01-21] MEDS: METFORMIN HCL 500 MG TABLET PO (08:27)
[2019-01-21] MEDS: METOPROLOL IR 25 MG TABLET PO (08:28)
[2019-01-21] MEDS: ACETAMINOPHEN 325 MG TABLET 975 MG PO (08:28)
[2019-01-21] MEDS: TRAMADOL 50 MG TABLET PO ×2 (08:29→13:20)
[2019-01-21] MEDS: ATORVASTATIN 20 MG TABLET 40 MG PO (08:29)
[2019-01-21] MEDS: LOSARTAN 50 MG TABLET 100 MG PO (08:29)
[2019-01-21] MEDS: CHLORTHALIDONE 25 MG TABLET PO (08:38)
[2019-01-21] MEDS: SODIUM CHLORIDE 0.9% FLUSH 10 ML IV (08:38)
[2019-01-21] MEDS: POLYETHYLENE GLYCOL 3350 17 GM POWD.PACK PO (08:41)
[2019-01-21] MEDS: DOCUSATE 100 MG CAPSULE PO (08:41)
[2019-01-21] MEDS: hydrOXYzine pamoate 25 MG CAPSULE 50 MG PO (10:10)
[2019-01-21] MEDS: IBUPROFEN 400 MG TABLET PO (10:10)
--- NOTE | 2019-01-21 11:11 | PC.NURSE ---
Addendum entered by Frida Brunson R.N. 01/21/19 14:32: DC - reviewed dc instructions, care gino, medications, scripts provided to pt again with spouse, belongings gathered, tsf to , hog worker assisted to family car. Addendum entered by Frida Brunson R.N. 01/21/19 13:29: DC/PAIN - after lunch and prior to discharge, given 50mg po tramadol for discomfort 2 on scale 0/10, as previously instructed by Jada FERNANDEZ, the radha wrap was removed, discussed care and monitoring of the gino and how to disable it when it is no longer working, saline lock dc'd, pt was using the hospital cpap, has clothing, cane, shoes, cell phone and sales clerk supervisor. Original Note: AM NOTE - awakened for breakfast, cpap removed, bs clear, coarse, assisted to dangle position for medications, pt moving slowly in bed, states l knee pain 4 on scale 0/10, reluctant to take tylenol, did add 50mg tramadol and added tylenol, later given 25mg po vistaril and ibuprofen after speaking to REBECCA Elias, gino dsg cdi, green light flashing, added miralax and sayda this am, had bm yesterday, up with phys therapy and using fww ambul into hallway, gait steady and pain managed well with earlier medications, 2 on scale 0/10, cleared for dc home.
--- NOTE | 2019-01-21 11:24 | PT.IPTN ---
Current Diagnoses Unilateral primary osteoarthritis, left knee (01/18/19) Presence of right artificial knee joint (01/18/19) Surgery Performed Operation Date: 01/18/19 13:00 Actual Procedures p Total Knee Arthroplasty(Left) - Dejan Estrada MD Physical Therapy Treatment Note M2 PT-IP Current Condition Start: 01/19/19 08:36 Freq: NEEDED Status: Active Protocol: Document 01/19/19 10:50 AW (Rec: 01/19/19 11:24 AW [id number]) Physical Therapy Current Condition Current Condition Evaluation Date 01/19/19 Treatment Diagnosis s/p L TKA, impaired mobility Weight Bearing Status Weight Bearing Status Weight Bear as Tolerated M3 PT-IP Subjective Start: 01/19/19 08:36 Freq: NEEDED Status: Active Protocol: Document 01/21/19 11:15 GGD (Rec: 01/21/19 14:24 GGD [id number]) Subjective Physical Therapy Visit Type Type Treatment Note Visit Start Time 10:50 Visit Stop Time 11:11 Total Visit Minutes 21 Number of CADD MANAGER Visits 3 Physical Therapy Visit Comments Patient Comments Pt states he is willing to work with therapy. Therapy Pain Assessment Pain When Pain Assessed At Rest Pain Present Pain Present Pain Reported Location Knee Intensity 3 Scale Used Numeric (1 - 10) M4 PT-IP Mobility and Gait Start: 01/19/19 08:36 Freq: NEEDED Status: Active Protocol: Document 01/21/19 11:15 GGD (Rec: 01/21/19 14:24 GGD [id number]) PT-Transfer Assessment Sit to and From Stand Sit to and from Stand Contact Guard Assistance,1 Person Assistance,Use of Upper Extremities Equipment Transfer Assistive Device Gait Belt,Front Wheeled Walker Transfers Transfer Destination Chair Transfer Ability Level of Assist Contact Guard Assistance,Use of Upper Extremities Gait Assessment Gait Gait Assistance Required: Contact Guard Assist Distance (Feet) 60 Able to Maintain Weight Bearing Status Yes During Gait Assistive Devices Assistive Device Gait Belt,Front Wheeled Walker Orthotic/Prosthetic Devices or Brace: No Gait Deviations General Gait Pattern Antalgic,Decreased Stride Length,Decreased Feet Clearance,Flexed Trunk,Step-to Gait Factors Limiting Gait Function Factors Limiting Gait Function Decreased Activity Tolerance, Decreased Sensation,Decreased Strength,Pain,Poor Balance, Poor Safety Awareness M5 PT-IP Objective Assessments Start: 01/19/19 08:36 Freq: NEEDED Status: Active Protocol: Document 01/19/19 10:50 AW (Rec: 01/19/19 11:24 AW [id number]) Orientation Orientation/Cognition Level of Alertness Alert Orientation Name,Date,Place,Situation Language Function Ability No Deficits Noted Safety Awareness Decreased Safety Awareness Memory Description No Deficits Noted Comments Pt was impulsive with transfers, requiring frequent cues for safe use of FWW, safe use of UE's for support. Gross Range of Motion Upper Extremity ROM Assessment Within Functional Limits Lower Extremity ROM Assessment Left Impaired Strength Upper Extremity Strength Assessment Within Functional Limits Lower Extremity Strength Assessment Left Impaired Comments Strength Comments RLE grossly 4+/5 Sensation Assessment Sensation Gross Sensation Right LE Impaired,Left LE Impaired Light Touch Impaired Sensation Description Numbness Comments Sensation Comments Pt has history of diabetic neuropathy affecting light touch sensation of bilateral plantar feet (left more affected than right) M6 PT-IP Treatment Start: 01/19/19 08:36 Freq: NEEDED Status: Active Protocol: Document 01/21/19 11:15 GGD (Rec: 01/21/19 14:24 GGD [id number]) Physical Therapy Treatment Exercises Exercises Ankle Pumps,Quad Sets,Short Arc Quads,Seated Knee Flexion/ Extension M7 PT-IP Assessment and Plan Start: 01/19/19 08:36 Freq: NEEDED Status: Active Protocol: Document 01/21/19 11:15 GGD (Rec: 01/21/19 14:24 GGD [id number]) PT Summary Assessment and Plan Summary Assessment Summary Pt able to progress gait distance. He needed cues for sit to stand. He is unsteady with sit to stand, but after full stand pt had improve stability. Frequency of Treatment Frequency Of Treatment Twice a Day Treatment Plan Physical Therapy Treatment Plan Bed Mobility Training,Transfer Training,Gait Training, Therapeutic Exercise,Balance Retraining,Post Op Education, Discharge Planning,Hot or Cold Pack,Neuromuscular Re-ed, Coordination Retraining,Manual Therapy Recommendations To Nursing Amount of Assist Needed 1 Person Assist Discharge Recommendations PT Discharge Recommendations Home with Assistance,Home Health
--- NOTE | 2019-01-21 11:56 | CM.DPC ---
Addendum entered by Mildred Barnes R.N. 01/21/19 15:57: [facility] called to let CM know that they do not see patients down in [place]. They only go to [place]. [facility] was contacted and sent Clinicals to review along with F2F. Cm gave information for [facility] to patient to review. In the mean time patient has his an family at home to help with mobility. Mildred Barnes RN Original Note: DCP Continued: CM met with Patient at bedside to disscuss patients discharge. Patient has after PT evaluation both patient and PT would like patient to DC with today 01/21/2019. CM contacted [facility] to see if they will be able to accept patient and work with him. Cm contacted [facility] answering service they are having their intake person call today to set up HH. Clinicals faxed to [facility] to [phone]. F2F completed. patient is D/C today home with patient is on [facility] and has post op appt set up for 01/26/2019 and OP PT will be set up at that appt. PT evaluation stated patient can go home with assistance and or HH. [facility] pamphlete given to patient to review. Mildred Barnes RN.
--- NOTE | 2019-01-21 12:13 | PM.DS.1 ---
History of Present Illness History of Present Illness Date Patient Seen: 01/21/19 Chief complaint: [id number] Left Total Knee Arthroplasty Narrative: Please see HPI previously recorded in chart. Discharge Providers Provider Date of admission: 01/18/19 10:32 Discharge Date: 01/21/19 Primary care physician: Pablo Baxter MD Consults: 01/18/19 17:25 Consult to Discharge Planning Routine Comment: Consult to Discharge Planning Routine Comment: Consult to Physical Therapy Evaluate & Treat Comment: Physician Instructions: postop TKA protocol Consult to Physical Therapy Evaluate & Treat Comment: Physician Instructions: postop TKA protocol Consult to Respiratory Therapy Evaluate & Treat Comment: Physician Instructions: Evaluate and treat Consult to Respiratory Therapy Evaluate & Treat Comment: Physician Instructions: Evaluate and treat Discharge provider: Jada Eagle PA-C Summary Hospital Course Discharge Diagnosis: s/p left total knee arthroplasty Hospital Course: Rhett is a 68 year old male who presents today for total knee arthroplasty after failure of conservative treatment. The nature of the procedure including the risks and benefits, alternatives, postoperative course and expected outcome were discussed and all questions answered. Operative site confirmed and marked. After obtaining informed consent the patient was brought to the operating room where he underwent a left total knee arthroplasty with Dr. Estrada which he tolerated well without complications. He was taken to the acute care floor where he has been somewhat slow to progress. He noted significant problems with pain control POD#1 and to some extent POD#2 but is now stable on regimen of Tramadol with Vistaril. Encourage patient to take Tylenol and Ibuprofen regularly though he has been intermittently refusing these. He has been slow to mobilize with PT, requiring some additional assistance but has shown improvement. Due to this he would likely benefit from home health which will hopefully be arranged prior to discharge. Voiding appropriately and tolerating a diet. Prescriptions for Tramadol, Vistaril, Ibuprofen, and Colace provided. He is medically stable for discharge to home later today. Status at Discharge Cognitive/behavioral status at discharge: oriented Functional status at discharge: uses cane/walker Overall status at discharge: patient is progressing back to baseline Exam Vital Signs (past 8 hours): - 01/21/19 05:08 01/21/19 08:00 Temperature 97.4 F L 97.8 F Pulse Rate 72 75 Respiratory Rate 20 20 Blood Pressure 132/61 116/58 L Pulse Oximetry 93 90 L Oxygen Delivery Method CPAP Oxygen Flow Rate 0 Narrative Exam Narrative: 68 year old male resting in chair. Alert and oriented. JOSE M dressing in place over left knee is on and functioning. Patient able to flex/extend the ankle. Palpable pedal pulse. Calves soft, compressible. Objective Labs Result Diagrams: 01/19/19 06:16 Discharge Plan Discharge Plan Patient Disposition: Home Discharge comment: Home after PT Discharge Med Rec/Prescriptions Prescriptions: New acetaminophen 325 mg Tablet 975 mg PO TID Qty: 40 RF: 0 tramadol 50 mg Tablet 50 mg PO QID PRN (Reason: Pain, Moderate (4-6)) Qty: 60 RF: 0 ibuprofen 400 mg Tablet 400 mg PO Q4HR PRN (Reason: Pain, Mild (1-3)) Qty: 40 RF: 0 docusate sodium [DOK] 100 mg Capsule 100 mg PO BID PRN (Reason: Constipation) Qty: 30 RF: 0 hydroxyzine pamoate 25 mg Capsule 50 mg PO Q6HR PRN (Reason: Pain, Severe (7-10)) Qty: 40 RF: 0 Continued atorvastatin 40 mg Tablet 40 mg PO QAM RF: 0 metformin 500 mg Tablet 500 mg PO BID RF: 0 chlorthalidone 25 mg Tablet 25 mg PO DAILY RF: 0 losartan 100 mg Tablet 100 mg PO DAILY RF: 0 metoprolol tartrate 25 mg Tablet 25 mg PO DAILY RF: 0 zolpidem 10 mg Tablet 5 mg PO BEDTIME PRN (Reason: Sleep) RF: 0 Changed aspirin 81 mg Tablet,Delayed Release (Dr/Ec) 81 mg PO BID Qty: 0 RF: 0 Follow up/Referrals: Dejan Estrada MD [Physician] - As previously scheduled Provider Discharge Instructions Diet: Diet as Tolerated Activity: Weight bear as tolerated. Use front wheel walker while ambulating. Cold/Heat Therapy: Ice packs as needed. Please allow skin to return to room temperature between icing. Skin/Wound/Dressing Care Report to your healthcare provider any signs of infection, such as:: chills, fever, night sweats, unusual drainage and unusual redness Dressing: Dressing is to remain in place until your 2 week post operative visit. Please call the office if this becomes saturated. Visit Report/Discharge Packet Instructions: DI for Knee Replacement, Hydroxyzine, Tramadol Discharge Data Primary Care Provider: Pablo Baxter VTE Deep Vein Thrombosis/Pulmonary Embolism Present on Admission: No
--- NOTE | 2019-01-23 14:35 | CM.DPNOTE ---
Received a call from Frandy at [facility] stating they received a faxed referral over the weekend on 01/21/19 and that they are back in the office and reviewed referral and they are full and cannot accept the new referral for pt who lives in [place]. Per d/c DCP note, referral initially faxed to [facility] but they do not cover [place] then faxed to [facility] in hopes they could accept the pt but due to [facility] not being staffed on the weekends no confirmation was obtained that they could open the pt to service. ANY called [facility] liaison [facility] and confirmed they can generally accept pt in [place] and just opened another pt to service in [place] and would be happy to review clinicals and get F2F from medical records as pt discharged 2 days ago. ANY faxed facesheet, H&P, d/c summary, and PT/OT notes to [facility] to review and they will follow with ortho and PCP for any needed documents. No orders available in the computer. PATRICIA Bauer
== END 2019-01-21 14:30 | disposition home or self-care (01) | DRG 470 ==
PROVIDERS: Admitting Provider Orthopaedic Surgery; PCP Family Medicine; Visit Provider Orthopaedic Surgery
PROC: 0SRD0JZ Replacement of Left Knee Joint with Synthetic Substitute, Open Approach (ICD-10-PCS; CPT 27447; principal; 2019-01-18 13:00)
DX: M17.12 Unilateral primary osteoarthritis, left knee (principal); Z68.41 Body mass index [BMI] 40.0-44.9, adult; Z96.651 Presence of right artificial knee joint; E11.9 Type 2 diabetes mellitus without complications; G47.30 Sleep apnea, unspecified; I10 Essential (primary) hypertension; Z87.891 Personal history of nicotine dependence; E66.01 Morbid (severe) obesity due to excess calories; G89.18 Other acute postprocedural pain
CPT/HCPCS: 36415; 73560; 82962; 85014; 85018; 94660; 94760; 94762; 97110; 97116; 97162; 97530; C1776; C9290; J0690; J1100; J1170; J2250; J2704; J3010